=== PATIENT | female | born 1960 | race Two or more races ===

== ENCOUNTER 2019-04-17 20:43 | Emergency (ER) | payer BC ==
[2019-04-17] MEDS ORDERED: ASPIRIN 81 MG CHEWABLE TABLET PO ONE (20:48)
[2019-04-17] MEDS ORDERED: MAGNESIUM HYDROXIDE/AL HYDROX 30 ML, LIDOCAINE VISC 2% 15ML 15 ML PO ONE ×2 (20:48)
--- NOTE | 2019-04-17 20:51 | Emergency Department Record ---
History of Present Illness - General Chief Complaint: Chest Pain Stated Complaint: CHEST PAIN Time Seen by Provider: 04/17/19 20:46 Source: Patient Mode of Arrival: Ambulatory Limitations: No limitations - History of Present Illness Initial Comments: 58 yo female presents to ED for evaluation of chest discomfort in the substernal region, started approximately 35 minutes ago. Patient reports taking Tums for her symptoms as she has a long-standing history of GERD with similar symptoms. Patient denies previous heart or lung problems, denies calf pain, swelling, or h/o DVT. Patient denies history of HTN/Hypercholesterolemia. Patient does report a family history of CAD at 58 (Father). MD Complaint: Chest pain Onset/Timin -: Minutes(s) Pain Location: Substernal Pain Radiation: None Severity: Moderate Quality: Aching Consistency: Constant Improves With: Nothing Worsens With: Nothing Treatments Prior to Arrival: Other (Tums) - Related Data On Oral Contraceptives: No Allergies Allergy/AdvReac Type Severity Reaction Status Date / Time No Known Drug Allergies Allergy Unverified 07/11/18 08:27 Review of Systems Constitutional: Denies: Chills, Fever, Malaise, Night sweats Eyes: Denies: Eye discharge ENT: Denies: Congestion, Ear pain, Epistaxis Respiratory: Denies: Cough, Dyspnea Cardiovascular: Reports: Chest pain. Denies: Dyspnea on exertion Endocrine: Denies: Fatigue, Heat or cold intolerance Gastrointestinal: Denies: Abdominal pain, Nausea, Vomiting Genitourinary: Denies: Incontinence, Retention Musculoskeletal: Denies: Arthralgia, Back pain Skin: Denies: Bruising, Change in color Neurological: Denies: Abnormal gait, Confusion, Headache, Seizure Psychiatric: Denies: Anxiety Hematological/Lymphatic: Denies: Anemia, Blood Clots Past Medical History - SOCIAL HISTORY Smoking Status: Never smoker Alcohol Use: Occasional Drug Use: None - RESPIRATORY Hx Respiratory Disorders: Yes Hx Asthma: Yes (WELL CONTROLLED) Hx Bronchitis: Yes Hx Pneumonia: Yes - CARDIOVASCULAR Hx Cardio Disorders: Yes Hx Irregular Heartbeat: Yes (MANY YEARS AGO) - NEURO Hx Neuro Disorders: No - GI Hx GI Disorders: Yes Hx Reflux: Yes (POOR CONTROL) - Hx Genitourinary Disorders: No - ENDOCRINE Hx Endocrine Disorders: No - MUSCULOSKELETAL Hx Musculoskeletal Disorders: Yes Comment:: CTS RIGHT - PSYCH Hx Psych Problems: Yes Hx Anxiety: Yes (CONTROLLED WITH MEDS) - HEMATOLOGY/ONCOLOGY Hx Hematology/Oncology Disorders: No Family Medical History Any Significant Family History?: Yes Hx Diabetes: Father, Mother Hx Heart Disease: Father, Mother Physical Exam - General General Appearance: Alert, Oriented x3, Cooperative, Mild distress Limitations: No limitations - Head Head exam: Atraumatic, Normocephalic, Normal inspection Head exam detail: negative: Abrasion, Contusion, Quintero's sign, General tenderness, Hematoma, Laceration - Eye Eye exam: Normal appearance. negative: Conjunctival injection, Periorbital swelling, Periorbital tenderness, Scleral icterus - ENT Ear exam: negative: Auricular hematoma, Auricular trauma Nasal Exam: negative: Active bleeding, Discharge, Dried blood, Foreign body Mouth exam: negative: Drooling, Laceration, Muffled voice, Tongue elevation - Neck Neck exam: Normal inspection. negative: Meningismus, Tenderness - Respiratory Respiratory exam: Normal lung sounds bilaterally. negative: Rales, Respiratory distress, Rhonchi, Stridor - Cardiovascular Cardiovascular Exam: Regular rate, Normal rhythm, Normal heart sounds - GI/Abdominal GI/Abdominal exam: Soft. negative: Rebound, Rigid, Tenderness - Rectal Rectal exam: Deferred - exam: Deferred - Extremities Extremities exam: Normal inspection. negative: Calf tenderness, Pedal edema, Tenderness - Back Back exam: Denies: CVA tenderness (R), CVA tenderness (L) - Neurological Neurological exam: Alert, Normal gait, Oriented X3 - Psychiatric Psychiatric exam: Normal affect, Normal mood - Skin Skin exam: Normal color. negative: Abrasion Type of lesion: negative: abrasion Course - Reevaluation(s) Reevaluation #1: 04/17/19 20:54 EKG: NSR 71 Normal axis, normal intervals No acute ST-T wave changes Q waves III only Overall unchanged from 12/10/17 Reevaluation #3: 04/17/19 21:43 Laboratory studies were reviewed and appear grossly unremarkable for an acute process. CXR: No acute process The patient was deemed to be low-risk for cardiac disease based on the patients history and evaluation in the ED, HEART Score was applied and found to be 2. As a result, repeat Troponin in 3-hours appears appropriate and if negative for myocardial injury, the patient may be discharged home with appropriate outpatient follow-up for further evaluation. Reevaluation #4: 04/18/19 00:09 Repeat Troponin appears negative for myocardial injury Patient appears stable for discharge at this time with instructions for outpatient cardiac stress testing. Referral for Dr. Barnett was placed prior to discharge. Medical Decision Making - Lab Data Result diagrams: 04/17/19 20:50 04/17/19 21:08 Disposition Disposition: Discharge Clinical Impression: Atypical chest pain Disposition: Home, Self-Care Condition: (2) Stable Instructions: Chest Pain (ED) Additional Instructions: Return to ED if your symptoms worsen or if you have any concerns. Follow-up with Dr. Barnett in 3-5 days as directed. Referrals: [facility] [Provider Group] Shaye Barnett M.D. [MEDICAL DOCTOR] - DALILA MUHAMMAD [DOCTOR OF OSTEOPATH] - Forms: Patient Portal Access Time of Disposition: 00:10 Quality - Quality Measures Quality Measures: N/A - Blood Pressure Screening Does Patient Have Any of the Following: No Blood Pressure Classification: Hypertensive Reading Systolic Measurement: 151 Diastolic Measurement: 79 Screening for High Blood Pressure: < First Hypertensive BP, F/U Documented > [G8950] First Hypertensive Follow-up Interventions: Referral to alternative/primary care provider.
[2019-04-17 21:00] LABS: BASO % 0.3 % (0-6); GRAN % 55.7 % (47-80); HEMOGLOBIN 12.3 gm/dl (11.6-16.0); MEAN CELL VOLUME 90.7 fl (81-97); MEAN CORPUSCULAR HEMOGLOBIN 29.4 pg (27-33); MEAN CORPUSCULAR HGB CONC 32.4 g/dl (32-36); MEAN PLATELET VOLUME 10.7 fl (7.4-10.4); PLATELET COUNT 314 K/uL (130-400); RED BLOOD COUNT 4.19 M/uL (3.80-5.40); RED CELL DISTRIBUTION WIDTH 13.1 % (11.5-14.5); WHITE BLOOD COUNT W/O DIFF 7.2 K/uL (4.2-12.2)
[2019-04-17 21:32] LABS: BILIRUBIN,TOTAL < 0.20 mg/dL (0.2-1.0); BLOOD UREA NITROGEN 18 mg/dL (6-20); CREATININE 0.7 mg/dL (0.5-0.9); EST GLOMERULAR FILTRATION RATE > 60 mL/min
[2019-04-17 21:33] LABS: TOTAL PROTEIN 7.1 g/dL (6.6-8.7)
[2019-04-17 21:34] LABS: GLUCOSE,RANDOM 127 mg/dL (74-109)
[2019-04-17 21:37] LABS: ALB/GLOB RATIO 1.3 (1.1-1.8); ALT/SGPT 23 U/L (<33); AST/SGOT 17 U/L (10.0-35.0)
[2019-04-17 21:38] LABS: ALKALINE PHOSPHATASE 142 U/L (35-104)
--- NOTE | 2019-04-17 21:45 | RADIOLOGY REPORT ---
EXAMINATION: Two View Chest Radiographs EXAM DATE: 04/17/2019 9:37 PM TECHNIQUE: Frontal and lateral views INDICATION: Chest pain COMPARISON: June 06, 2018 ENCOUNTER: Not applicable FINDINGS: The heart, mediastinum, and pulmonary vasculature are normal. No lung consolidation or pleural effu sions are present. IMPRESSION: Negative for active intrathoracic disease Dictated by: Isabel Wynn MD on 04/17/2019 9:37 PM. .
== END 2019-04-18 00:23 | disposition home or self-care (01) ==
LOC: ER 20:43
DX: R07.89 Other chest pain (principal)
CPT/HCPCS: 71046; 80053; 84484; 85025; 93005; 93010; 99284

== ENCOUNTER 2019-04-20 06:07 | Day surgery (SDC) | payer BC ==
[~2019-04-20 06:07] MED LIST: ACETAMINOPHEN 1,000 MG/100 ML BTL IVPB ONE; FAMOTIDINE 20MG TABLET PO ONE; MECLIZINE 25 MG TABLET PO ONE; METOCLOPRAMIDE 10 MG TABLET PO ONE
[2019-04-20] MEDS ORDERED: MIDAZOLAM HCL 2MG/2ML VIAL IV ONE (06:08)
[2019-04-20] MEDS ORDERED: FENTANYL PF 100MCG/2ML VIAL IV ONE (06:08)
[2019-04-20] MEDS ORDERED: ONDANSETRON HCL IV 4 MG/2 ML VIAL IVP ONE (06:08)
[2019-04-20] MEDS ORDERED: PROPOFOL 10 MG/ML VIAL IV ONE (06:08)
[2019-04-20] MEDS ORDERED: LIDOCAINE 2% MDV (20MG/ML) 20ML VIAL IV ONE (06:08)
[2019-04-20] MEDS ORDERED: RINGERS SOLUTION,LACTATED 1,000 ML IV ONE (06:30)
[2019-04-20] MEDS ORDERED: LIDOCAINE 1% MPF 100MG/10ML STERILE-PAK AMPULE SQ ONE (07:33)
--- NOTE | 2019-04-21 07:23 | Operative Note ---
DATE OF SURGERY: 04/20/2019 SURGEON: Elbert Shelby D.O. REFERRING PHYSICIAN: Maricarmen Hearn N.P. PREOPERATIVE DIAGNOSIS: CARPAL TUNNEL SYNDROME OF THE RIGHT WRIST. POSTOPERATIVE DIAGNOSIS: CARPAL TUNNEL SYNDROME OF THE RIGHT WRIST. OPERATION: DECOMPRESSION RIGHT MEDIAN NERVE OF THE WRIST USING 3.5 LOUPE MAGNIFICATION. DESCRIPTION: This 58-year-old female was taken to the Operating Room and placed in a supine position on the operating room table. Assisted local anesthesia was used for anesthetic and 1% Xylocaine plain was used as the local anesthetic. The right upper extremity was prepped with Hibiclens and draped in the usual sterile fashion. The wound was anesthetized and subsequently the right upper extremity was exsanguinated and the tourniquet inflated to 200 mmHg. A palmar incision was utilized following the hypothenar crease from the level of the base of the web space of the thumb to the flexor crease of the wrist and dissection was carried down through the skin and subcutaneous tissue. Hemostasis was obtained with the electrocautery. The palmar fascia was divided in line with the skin incision to expose the flexor retinaculum. This was then punctured and split to its proximal margin. With the contents of the carpal tunnel under direct vision, the transverse carpal ligament was transected along its ulnar border. The radial flap was raised to expose the entire median nerve under the transverse carpal ligament. The recurrent motor branch of the medial nerve was identified and found to be normal. Marked hyperemia and mild hourglass deformity of the nerve was identified. The wound was irrigated with lactated Ringer's solution, tourniquet released, hemostasis obtained with the electrocautery, and the skin was closed with interrupted 6-0 nylon suture. Sterile dressings with the plaster splint were applied with the wrist in slight dorsiflexion and the thumb in an adducted position. JOB NUMBER: [id number] MTDD
== END 2019-04-20 08:20 | disposition home or self-care (01) ==
LOC: SUR 06:07
PROVIDERS: ATTEND Orthopaedic Surgery
DX: G56.01 Carpal tunnel syndrome, right upper limb (principal); J45.909 Unspecified asthma, uncomplicated
CPT/HCPCS: 64721; 64727; 01810; J2405; J3010; J3490; J7120

== ENCOUNTER 2019-05-11 14:01 | Day surgery (SDC) | payer BC ==
[2019-05-11] MEDS ORDERED: PROPOFOL 10 MG/ML VIAL IV ONE (14:02)
[2019-05-11] MEDS ORDERED: LIDOCAINE 2% MDV (20MG/ML) 20ML VIAL IV ONE (14:02)
--- NOTE | 2019-05-19 10:52 | Operative Note ---
OPERATION: ESOPHAGOGASTRODUODENOSCOPY with biopsy. PREOPERATIVE DIAGNOSIS: Intractable heartburn. POSTOPERATIVE DIAGNOSES: 1. Irregular GE junction suggestive of GE junction erosions. 2. Gastritis. PROCEDURE: After informed consent was obtained from the patient, she was placed in the left lateral decubitus position in the endoscopy suite, sedated and monitored by the department of anesthesia. A well-lubricated KRL750 gastroscope was placed in the posterior oropharynx under direct visualization and passed to the proximal esophagus. The endoscope was advanced through the proximal, mid, and distal esophagus. The GE junction was minimally irregular with 2 faint erosions noted. The remainder of the GE junction was otherwise unremarkable. The gastric body demonstrated normal distensibility, normal rugal folds. There were a few erosions of the body and the antrum. No deep ulcers or mass lesions were seen. No fresh or old blood was seen. The pylorus, duodenal bulb, and sweep were unremarkable. J-turn views of the proximal stomach were unrevealing. The endoscope was straightened. Gastric biopsies were obtained. GE junction biopsies were obtained. The endoscope was removed from the patient with no new findings noted. RECOMMENDATIONS: I would suggest the patient continue her current medical program. I will have her undergo a fasting gastrin as well as an abdominal ultrasound. As always, thank you for allowing me to participate in the healthcare of your patients. HORTENCIA
== END 2019-05-11 15:10 | disposition home or self-care (01) ==
LOC: HOP 14:01
PROVIDERS: ATTEND Internal Medicine Gastroenterology
DX: R12 Heartburn (principal); K22.10 Ulcer of esophagus without bleeding; K29.70 Gastritis, unspecified, without bleeding; F41.9 Anxiety disorder, unspecified